=== PATIENT | female | born 1965 | race Caucasian/White ===

== ENCOUNTER 2017-12-10 15:04 | Emergency (ER) | payer MEDICAID, OTHER ==
[~2017-12-10] VITALS: Ht 162.6 cm; Wt 73.0 kg
[~2017-12-10 15:04] MED LIST: CLIN-79 PO
[2017-12-10 15:14] VITALS: BP 183/105
[2017-12-10] MEDS ORDERED: SULF1TAB49 PO (15:35)
[2017-12-10] MEDS ORDERED: TETanus/Pertussis (Acell)/Diphther VAC/PF (Tdap-Adult) 0.5ml syringe IM ONE (15:35)
[2017-12-10] MEDS ORDERED: CEPH500C5 PO (15:35)
== END 2017-12-10 15:45 | disposition home or self-care (01) ==
LOC: ER 15:05
DX: L03.011 Cellulitis of right finger (principal); L03.116 Cellulitis of left lower limb; Z98.51 Tubal ligation status; Z88.5 Allergy status to narcotic agent
CPT/HCPCS: 10060; 90715; 99283

== ENCOUNTER 2017-12-14 13:07 | Inpatient (IN) | payer MEDICAID, OTHER ==
[~2017-12-14] VITALS: Ht 162.6 cm; Wt 71.4 kg
[~2017-12-14 13:07] MED LIST changes: +CEPH500C5 PO; +SULF1TAB49 PO
[2017-12-14 13:51] LABS: BASOPHILS # (AUTO) 0.1 X10'3 (0-0.2); BASOPHILS % (AUTO) 1.2 % (0-1); EOSINOPHILS # (AUTO) 0.1 X10'3 (0-0.9); HEMATOCRIT 42.8 % (35.0-45.0); HEMOGLOBIN 14.7 g/dl (12.0-16.0); LYMPHOCYTES # (AUTO) 1.9 X10'3 (1.1-4.8); LYMPHOCYTES % (AUTO) 26.1 % (21-51); MEAN CORPUSCULAR HEMOGLOBIN 30.8 PG (27.0-31.0); MEAN CORPUSCULAR HGB CONC 34.4 % (33.0-36.5); MEAN CORPUSCULAR VOLUME 89.7 FL (78-98); MEAN PLATELET VOLUME 8.4 FL (7.4-10.4); MONOCYTES # (AUTO) 0.4 X10'3 (0-0.9); MONOCYTES % (AUTO) 5.7 % (2-12); NEUTROPHILS # (AUTO) 4.9 X10'3 (1.8-7.7); PLATELET COUNT 415 X10'3 (140-440); RED BLOOD COUNT 4.77 X10'6 (4.20-5.60); RED CELL DISTRIBUTION WIDTH 14.3 % (11.5-14.5); WHITE BLOOD COUNT 7.4 X10'3 (4.5-11.0)
[2017-12-14 14:10] LABS: ALANINE AMINOTRANSFERASE 33 U/L (12-78); ALBUMIN 3.4 G/DL (3.4-5.0); ALBUMIN/GLOBULIN RATIO 0.6 (1.1-1.5); ALKALINE PHOSPHATASE 103 IU/L (46-116); ANION GAP 16 (8-16); ASPARTATE AMINO TRANSFERASE 17 U/L (10-37); BILIRUBIN,TOTAL 0.2 MG/DL (0.1-1.0); BLOOD UREA NITROGEN 17 MG/DL (7-18); BUN/CREATININE RATIO 13.6 (6.6-38.0); CALCIUM 9.5 MG/DL (8.5-10.1); CHLORIDE 100 MMOL/L (99-107); CREATININE 1.25 MG/DL (0.40-0.90); GLUCOSE 171 MG/DL (70-104); POTASSIUM 3.9 MMOL/L (3.5-5.1); SODIUM 136 MMOL/L (135-145); TOTAL CARBON DIOXIDE 19.7 MMOL/L (24-32); TOTAL PROTEIN 8.8 G/DL (6.4-8.2); eGFR 45 ML/MIN
[2017-12-14] MEDS ORDERED: vancomycin/NS 1 GM ADD-VANTAGE 250 ML IV ONE (14:15)
[2017-12-14] MEDS ORDERED: normal saline 1000ML IV soln IV ONE ×2 (14:15→15:00)
[2017-12-14] MEDS ORDERED: morphine 4 MG/ML inj SYRINge IV ONE (14:20)
[2017-12-14] MEDS ORDERED: LORazepam 2 mg/ml vial IV ONE ×2 (14:20→15:00)
[2017-12-14] MEDS ORDERED: metoprolol succinate 25mg (24-HOUR) SR. Tablet PO STA (14:58)
[2017-12-14] MEDS ORDERED: thiamine 100mg/ml 2ml inj. IV ONE ×2 (15:00→15:15)
[2017-12-14] MEDS ORDERED: folic acid 1mg/0.2ml inj IV ONE (15:00)
[2017-12-14] MEDS ORDERED: levoFLOXACIN-Levaquin 750MG/D5 150 ML IV ONE (15:00)
[2017-12-14] MEDS ORDERED: acetaminophen 325mg tablet PO PRN (15:10)
[2017-12-14] MEDS ORDERED: ondansetron/PF 4mg/2ml inj IV PRN (15:10)
[2017-12-14] MEDS ORDERED: mag hydrox/Alum hydrox/simeth 30ml oral suspension PO PRN (15:10)
[2017-12-14] MEDS ORDERED: HYDROmorphone inj. 0.5 MG/0.5 ML DISP.SYRIN IV PRN (15:10)
[2017-12-14] MEDS ORDERED: magnesium hydroxide 30ml (MOM) UD suspension PO PRN (15:10)
[2017-12-14] MEDS ORDERED: dextrose 50%-water 50ml dispensing syringe IV PRN (15:15)
[2017-12-14] MEDS ORDERED: LORazepam 2 mg/ml vial IM ONE (15:25)
[2017-12-14] MEDS ORDERED: normal saline 1000ml 1,000 ML IV ONE (17:20)
[2017-12-14] MEDS: normal saline 1000ml 1,000 ML IV SCH (18:30)
[2017-12-14 18:50] VITALS: BP 132/98
[2017-12-14] MEDS: LORazepam 2 mg/ml vial IV PRN ×2 (19:27→23:40)
[2017-12-14 22:00] VITALS: BP 135/51
[2017-12-15] MEDS: normal saline 1000ml 1,000 ML IV SCH ×3 (01:08→19:25)
[2017-12-15] MEDS: vancomycin/NS 1 GM ADD-VANTAGE 250 ML IV SCH ×2 (03:19→18:00)
[2017-12-15 06:00] VITALS: BP 141/77
[2017-12-15 06:11] LABS: BASOPHILS % (AUTO) 0.5 % (0-1); EOSINOPHILS # (AUTO) 0.2 X10'3 (0-0.9); EOSINOPHILS % (AUTO) 2.6 % (0-6); HEMATOCRIT 34.9 % (35.0-45.0); HEMOGLOBIN 12.1 g/dl (12.0-16.0); LYMPHOCYTES # (AUTO) 2.3 X10'3 (1.1-4.8); LYMPHOCYTES % (AUTO) 36.2 % (21-51); MEAN CORPUSCULAR HEMOGLOBIN 31.2 PG (27.0-31.0); MEAN CORPUSCULAR HGB CONC 34.8 % (33.0-36.5); MEAN CORPUSCULAR VOLUME 89.8 FL (78-98); MEAN PLATELET VOLUME 8.3 FL (7.4-10.4); MONOCYTES # (AUTO) 0.5 X10'3 (0-0.9); MONOCYTES % (AUTO) 8.5 % (2-12); NEUTROPHILS # (AUTO) 3.3 X10'3 (1.8-7.7); NEUTROPHILS % (AUTO) 52.2 % (42-75); PLATELET COUNT 348 X10'3 (140-440); RED BLOOD COUNT 3.89 X10'6 (4.20-5.60); RED CELL DISTRIBUTION WIDTH 13.8 % (11.5-14.5); WHITE BLOOD COUNT 6.4 X10'3 (4.5-11.0)
[2017-12-15 06:20] LABS: ALBUMIN 2.4 G/DL (3.4-5.0); ANION GAP 11 (8-16); BLOOD UREA NITROGEN 13 MG/DL (7-18); BUN/CREATININE RATIO 14.6 (6.6-38.0); CALCIUM 8.5 MG/DL (8.5-10.1); CHLORIDE 108 MMOL/L (99-107); CREATININE 0.89 MG/DL (0.40-0.90); GLUCOSE 102 MG/DL (70-104); POTASSIUM 4.1 MMOL/L (3.5-5.1); SODIUM 140 MMOL/L (135-145); TOTAL CARBON DIOXIDE 21.5 MMOL/L (24-32); eGFR 66 ML/MIN
[2017-12-15] MEDS: enoxaparin 40mg/0.4ml syringe SUBCUT SCH (08:45)
[2017-12-15] MEDS: levoFLOXACIN-Levaquin 750MG/D5 150 ML IV SCH (08:45)
[2017-12-15 10:00] VITALS: BP 185/86
[2017-12-15] MEDS: LORazepam 2 mg/ml vial IV PRN ×2 (12:31→22:31)
[2017-12-15] MEDS: HYDROcodone/acetaminophen 10/325mg tab PO PRN ×2 (14:11→19:25)
[2017-12-15 19:00] VITALS: BP 168/71
[2017-12-15] MEDS: lactobacillus rhamnosus 10,000 MMU CELLS/CAPSULE PO SCH (19:25)
[2017-12-15 22:00] VITALS: BP 136/73
[2017-12-16] MEDS: vancomycin/NS 1 GM ADD-VANTAGE 250 ML IV SCH (04:28)
[2017-12-16] MEDS: HYDROcodone/acetaminophen 10/325mg tab PO PRN ×2 (04:30→08:58)
[2017-12-16] MEDS: normal saline 1000ml 1,000 ML IV SCH (04:39)
[2017-12-16 06:00] VITALS: BP 146/74
[2017-12-16 06:06] LABS: BASOPHILS % (AUTO) 0.7 % (0-1); EOSINOPHILS # (AUTO) 0.3 X10'3 (0-0.9); EOSINOPHILS % (AUTO) 4.3 % (0-6); HEMATOCRIT 36.9 % (35.0-45.0); HEMOGLOBIN 12.7 g/dl (12.0-16.0); LYMPHOCYTES # (AUTO) 2.6 X10'3 (1.1-4.8); LYMPHOCYTES % (AUTO) 41.3 % (21-51); MEAN CORPUSCULAR HEMOGLOBIN 31.4 PG (27.0-31.0); MEAN CORPUSCULAR HGB CONC 34.4 % (33.0-36.5); MEAN CORPUSCULAR VOLUME 91.3 FL (78-98); MEAN PLATELET VOLUME 8.2 FL (7.4-10.4); MONOCYTES # (AUTO) 0.5 X10'3 (0-0.9); MONOCYTES % (AUTO) 8.3 % (2-12); NEUTROPHILS # (AUTO) 2.8 X10'3 (1.8-7.7); NEUTROPHILS % (AUTO) 45.4 % (42-75); PLATELET COUNT 358 X10'3 (140-440); RED BLOOD COUNT 4.04 X10'6 (4.20-5.60); WHITE BLOOD COUNT 6.2 X10'3 (4.5-11.0)
[2017-12-16 06:13] LABS: ALBUMIN 2.7 G/DL (3.4-5.0); ANION GAP 9 (8-16); BLOOD UREA NITROGEN 12 MG/DL (7-18); BUN/CREATININE RATIO 11.3 (6.6-38.0); CALCIUM 8.8 MG/DL (8.5-10.1); CHLORIDE 106 MMOL/L (99-107); CREATININE 1.06 MG/DL (0.40-0.90); GLUCOSE 103 MG/DL (70-104); POTASSIUM 3.9 MMOL/L (3.5-5.1); SODIUM 140 MMOL/L (135-145); TOTAL CARBON DIOXIDE 25.3 MMOL/L (24-32); eGFR 54 ML/MIN
[2017-12-16] MEDS: levoFLOXACIN-Levaquin 750MG/D5 150 ML IV SCH (07:42)
[2017-12-16] MEDS: lactobacillus rhamnosus 10,000 MMU CELLS/CAPSULE PO SCH (07:47)
[2017-12-16] MEDS: enoxaparin 40mg/0.4ml syringe SUBCUT SCH (07:50)
[2017-12-16 10:00] VITALS: BP 152/81
[2017-12-16] MEDS ORDERED: SULF1TAB49 PO (11:22)
[2017-12-16] MEDS ORDERED: VANCOMYCIN LEVEL IV NR (14:30)
[2017-12-16] MEDS ORDERED: LORazepam 1 MG tablet PO PRN (15:15)
[2017-12-16] MEDS ORDERED: LORazepam 2 mg/ml vial IV PRN (15:15)
[2017-12-18] MEDS ORDERED: LORazepam 2 mg/ml vial IV PRN (15:15)
[2017-12-18] MEDS ORDERED: LORazepam 1 MG tablet PO PRN (15:15)
== END 2017-12-16 12:27 | disposition home or self-care (01) | DRG 720 ==
LOC: ER 13:07 → ED HOLD 15:08 → ORTHO 4S 18:00
PROVIDERS: ADMIT Family Medicine; ATTEND Family Medicine
PROC: 0HTQXZZ Resection of Finger Nail, External Approach (ICD-10-PCS; principal; 2017-12-15)
PROC: 0HBFXZZ Excision of Right Hand Skin, External Approach (ICD-10-PCS; 2017-12-15)
DX: A41.9 Sepsis, unspecified organism (principal); F20.9 Schizophrenia, unspecified; I10 Essential (primary) hypertension; F31.60 Bipolar disorder, current episode mixed, unspecified; L02.511 Cutaneous abscess of right hand; M65.841 Other synovitis and tenosynovitis, right hand; L03.011 Cellulitis of right finger; F10.20 Alcohol dependence, uncomplicated; F15.10 Other stimulant abuse, uncomplicated; F12.90 Cannabis use, unspecified, uncomplicated; F17.210 Nicotine dependence, cigarettes, uncomplicated; Z98.51 Tubal ligation status; Z88.8 Allergy status to other drugs, medicaments and biological substances; Z88.5 Allergy status to narcotic agent; Z79.899 Other long term (current) drug therapy
CPT/HCPCS: 36415; 73130; 80048; 80053; 83605; 85025; 85651; 87040; 87070; 87077; 87186; 99285; A6222; A6255; A6266; A6449; J1650; J1956; J2060; J3370; J3411; J3490; J7030

== ENCOUNTER 2017-12-22 09:42 | Day surgery (SDC) | payer MEDICAID ==
[~2017-12-22 09:42] MED LIST changes: -CEPH500C5 PO; -CLIN-79 PO
[2017-12-22] MEDS ORDERED: LIDOcaine 2% 5ml jelly ONE (11:18)
== END 2017-12-22 12:01 | disposition home or self-care (01) ==
LOC: WOUND CARE 09:42
PROVIDERS: ATTEND Surgery
DX: L97.311 Non-pressure chronic ulcer of right ankle limited to breakdown of skin (principal); L98.491 Non-pressure chronic ulcer of skin of other sites limited to breakdown of skin; I10 Essential (primary) hypertension; F15.90 Other stimulant use, unspecified, uncomplicated; F10.20 Alcohol dependence, uncomplicated; F31.60 Bipolar disorder, current episode mixed, unspecified; F12.90 Cannabis use, unspecified, uncomplicated; F17.210 Nicotine dependence, cigarettes, uncomplicated; F20.9 Schizophrenia, unspecified; Z79.899 Other long term (current) drug therapy
CPT/HCPCS: 97597; A6206; A6212

== ENCOUNTER 2018-06-04 11:17 | Emergency (ER) | payer MEDICAID ==
[~2018-06-04] VITALS: Ht 162.6 cm; Wt 73.0 kg
[2018-06-04 11:23] VITALS: BP 170/92
[2018-06-04] MEDS ORDERED: NEOM10DR45 OT (13:03)
== END 2018-06-04 13:33 | disposition home or self-care (01) ==
LOC: ER 11:17
DX: S09.302A Unspecified injury of left middle and inner ear, initial encounter (principal); H60.92 Unspecified otitis externa, left ear; I10 Essential (primary) hypertension; F17.200 Nicotine dependence, unspecified, uncomplicated; F15.90 Other stimulant use, unspecified, uncomplicated; Z98.51 Tubal ligation status; Z79.2 Long term (current) use of antibiotics; Z88.5 Allergy status to narcotic agent; X58.XXXA Exposure to other specified factors, initial encounter; Y93.89 Activity, other specified; Y92.89 Other specified places as the place of occurrence of the external cause; Y99.8 Other external cause status
CPT/HCPCS: 99283

== ENCOUNTER 2018-09-14 15:09 | Emergency (ER) | payer MEDICAID ==
[~2018-09-14] VITALS: Ht 162.6 cm; Wt 71.8 kg
[2018-09-14 15:25] VITALS: BP 141/93
[2018-09-14] MEDS ORDERED: LIDOcaine 1% 30ml preserv. free vial IJ ONE (15:30)
[2018-09-14] MEDS ORDERED: TETanus/Pertussis (Acell)/Diphther VAC/PF (Tdap-Adult) 0.5ml syringe IM ONE (15:30)
[2018-09-14] MEDS ORDERED: CefTRIAXone 1000mg IM Kit (w/lidocaine diluent) IM ONE (16:05)
[2018-09-14] MEDS ORDERED: SULF1TAB49 PO (16:08)
[2018-09-14] MEDS ORDERED: HYDR-4353 PO (16:08)
[2018-09-14] MEDS ORDERED: CEPH-572 PO (16:08)
[2018-09-15] MEDS ORDERED: SULF-14 PO (13:19)
[2018-09-15] MEDS ORDERED: CEPH-572 PO (13:19)
[2018-09-15] MEDS ORDERED: HYDR-3973 PO (13:19)
[2018-09-15] MEDS ORDERED: NO HOME MEDS (17:19)
[2018-09-17] MEDS ORDERED: ACYC400T PO (13:50)
[2018-09-17] MEDS ORDERED: LACT1CAP26 PO (13:50)
[2018-09-17] MEDS ORDERED: SULF1TAB49 PO (13:50)
[2018-09-17] MEDS ORDERED: AMLO5TAB4 PO (20:58)
== END 2018-09-14 16:27 | disposition home or self-care (01) ==
LOC: ER 15:09
DX: L02.512 Cutaneous abscess of left hand (principal); L03.012 Cellulitis of left finger; I10 Essential (primary) hypertension; F15.90 Other stimulant use, unspecified, uncomplicated; Z98.51 Tubal ligation status; Z88.5 Allergy status to narcotic agent; Z88.8 Allergy status to other drugs, medicaments and biological substances
CPT/HCPCS: 10060; 87070; 87077; 87186; 90471; 90715; 96372; 99284; J0696; J3490

== ENCOUNTER 2023-09-11 09:03 | Emergency (ER) | payer MEDICAID ==
[~2023-09-11] VITALS: Ht 162.6 cm; Wt 72.6 kg
[~2023-09-11 09:03] MED LIST changes: +AMLO5TAB4 PO; +LACT1CAP26 PO; -SULF1TAB49 PO
[2023-09-11 09:04] VITALS: BP 192/92; PULSE 80; RESP 16; TEMP 98.3; O2SAT 100
--- NOTE | 2023-09-11 09:07 | NUR ---
MSE COMPLETED BY [facility]
== END 2023-09-11 13:36 | disposition home or self-care (01) ==
LOC: ER 09:04
DX: Z02.89 Encounter for other administrative examinations (principal); I10 Essential (primary) hypertension; J44.9 Chronic obstructive pulmonary disease, unspecified; F31.9 Bipolar disorder, unspecified; F20.9 Schizophrenia, unspecified; F15.90 Other stimulant use, unspecified, uncomplicated; Z72.89 Other problems related to lifestyle; Z98.51 Tubal ligation status; Z88.5 Allergy status to narcotic agent; Z88.8 Allergy status to other drugs, medicaments and biological substances; Z79.899 Other long term (current) drug therapy
CPT/HCPCS: 99281